=== PATIENT | male | born 1995 | race Caucasian/White ===

== ENCOUNTER 2016-10-27 11:39 | Emergency (ER) | payer OTHER ==
[~2016-10-27] VITALS: Ht 177.8 cm; Wt 70.0 kg
[~2016-10-27 11:39] MED LIST: CIPROFLOXACN500 MG PO; LORAZEPAM0.5 MG PO; MAXZIDE-2537.5 MG/TA PO; PRILOSEC40 MG PO; ROPINIROLE HCL2 MG PO; SINEQUAN10 MG PO; TIZANIDINE HCL4 MG PO; ZOFRAN4 MG/TAB PO
[2016-10-27 12:22] LABS: HEMATOCRIT 50.6 % (39.0-50.0); HEMOGLOBIN 16.8 g/dl (14.0-18.0); IMMATURE GRANULOCYTES 0.5 % (0.0-1.0); MEAN CELL VOLUME 83.8 fL CALC (80.0-100.0); MEAN CORPUSCULAR HGB 27.8 pG CALC (26.0-32.0); MEAN CORPUSCULAR HGB CONC 33.2 g/L CALC (32.0-36.0); NEUT# 11.64 thou/uL (1.82-7.42); RED BLOOD COUNT 6.04 mill/uL (4.70-6.10)
[2016-10-27 12:27] LABS: URINE BILIRUBIN - DIPSTICK NEGATIVE (NEGATIVE); URINE BLOOD DIPSTICK NEGATIVE (NEGATIVE); URINE CLARITY CLEAR; URINE COLOR YELLOW; URINE GLUCOSE - DIPSTICK NEGATIVE (NEGATIVE); URINE KETONE NEGATIVE (NEGATIVE); URINE NITRITE - DIPSTICK NEGATIVE (Negative); URINE PH 7.5 (4.5-8.0); URINE PROTEIN - DIPSTICK TRACE mg/dL (NEG-TRACE); URINE UROBILINOGEN - DIPSTICK 0.2 E.U./dL (0.2)
[2016-10-27 12:33] LABS: ALBUMIN 5.3 g/dL (3.2-5.0); ALKALINE PHOSPHATASE 75 u/l (38-126); AMYLASE 56 u/l (30-110); ANION GAP 20 (6-22 (CALC)); BILIRUBIN, TOTAL 0.7 mg/dL (0.0-1.4); BUN 13 mg/dL (9-20); BUN/CREATININE RATIO 16 (12-20 (CALC)); CALCIUM 10.6 mg/dL (8.4-10.2); CARBON DIOXIDE 26 mmol/l (22-30); CHLORIDE 106 mmol/l (95-108); CREATININE 0.8 mg/dL (0.7-1.3); GFR > 60 ML/MIN (>=60 (CALC)); GFR FOR AFR.AMER. > 60 ML/MIN (>=60 (CALC)); GLUCOSE 97 mg/dL (75-110); LIPASE 72 u/l (23-300); SGOT/AST 19 u/l (17-59); SGPT/ALT 27 u/l (21-72); SODIUM 148 mmol/l (137-146); TOTAL PROTEIN 8.8 g/dL (6.3-8.2)
[2016-10-27 12:39] LABS: BARBITURATES NEGATIVE (NEGATIVE); COCAINE NEGATIVE (NEGATIVE); METHADONE NEGATIVE (NEGATIVE); OXCYCODONE POSITIVE (NEGATIVE); TETRAHYDROCANNABIONOL POSITIVE (NEGATIVE); TRICYLIC ANTIDEPRESSANTS NEGATIVE (NEGATIVE); URINE LEUK ESTERASE NEGATIVE (NEGATIVE)
[2016-10-27 16:41] VITALS: BP 104/58
== END 2016-10-27 16:51 | disposition home or self-care (01) | DRG 392 ==
LOC: ED 11:39
PROVIDERS: Emergency Medicine
DX: R10.13 Epigastric pain (principal); F32.9 Major depressive disorder, single episode, unspecified; G89.29 Other chronic pain; N50.811 Right testicular pain; G40.909 Epilepsy, unspecified, not intractable, without status epilepticus; F17.210 Nicotine dependence, cigarettes, uncomplicated; V89.2XXS Person injured in unspecified motor-vehicle accident, traffic, sequela; Z87.820 Personal history of traumatic brain injury
CPT/HCPCS: Q9967

== ENCOUNTER 2018-06-20 08:07 | Emergency (ER) | payer BC, MEDICARE ==
[~2018-06-20] VITALS: Ht 177.8 cm; Wt 75.0 kg
[2018-06-20 08:56] LABS: HEMATOCRIT 47.1 % (39.0-50.0); IMMATURE GRANULOCYTES 0.6 % (0.0-5.0); MEAN CELL VOLUME 83.1 fL CALC (80.0-100.0); MEAN CORPUSCULAR HGB 28.2 pG CALC (26.0-32.0); NEUT# 13.2 thou/uL (1.82-7.42); RED BLOOD COUNT 5.67 mill/uL (4.70-6.10); RED CELL DISTRI WIDTH 12.6 % (11.5-15.5)
[2018-06-20 09:17] LABS: ALBUMIN 4.6 g/dL (3.2-5.0); ALKALINE PHOSPHATASE 81 u/l (38-126); AMYLASE 59 u/l (30-110); ANION GAP 16 (6-22 (CALC)); BILIRUBIN, TOTAL 0.4 mg/dL (0.0-1.4); BUN 15 mg/dL (9-20); BUN/CREATININE RATIO 19 (12-20 (CALC)); CARBON DIOXIDE 23 mmol/l (22-30); CHLORIDE 110 mmol/l (95-108); CREATININE 0.8 mg/dL (0.7-1.3); GFR > 60 ML/MIN (>=60 (CALC)); GFR FOR AFR.AMER. > 60 ML/MIN (>=60 (CALC)); LIPASE 84 u/l (23-300); POTASSIUM 4.4 mmol/l (3.5-5.1); SGOT/AST 27 u/l (17-59); SODIUM 145 mmol/l (137-146); TOTAL PROTEIN 7.5 g/dL (6.3-8.2)
[2018-06-20 09:27] LABS: URINE BILIRUBIN - DIPSTICK NEGATIVE (NEGATIVE); URINE BLOOD DIPSTICK NEGATIVE (NEGATIVE); URINE COLOR YELLOW; URINE GLUCOSE - DIPSTICK NEGATIVE (NEGATIVE); URINE KETONE NEGATIVE (NEGATIVE); URINE LEUK ESTERASE NEGATIVE (NEGATIVE); URINE NITRITE - DIPSTICK NEGATIVE (Negative); URINE PH 8.5 (4.5-8.0); URINE PROTEIN - DIPSTICK TRACE mg/dL (NEG-TRACE); URINE SPECIFIC GRAVITY 1.015; URINE UROBILINOGEN - DIPSTICK 0.2 E.U./dL (0.2)
[2018-06-20] MEDS ORDERED: PHENERGAN25 M1 PR (11:49)
[2018-06-20 12:01] VITALS: BP 108/65
== END 2018-06-20 12:16 | disposition home or self-care (01) | DRG 392 ==
LOC: ED 08:07
PROVIDERS: Emergency Medicine
DX: R10.13 Epigastric pain (principal); Z87.820 Personal history of traumatic brain injury

== ENCOUNTER 2018-10-18 14:19 | Emergency (ER) | payer BC, MEDICARE ==
[~2018-10-18] VITALS: Ht 177.8 cm; Wt 60.0 kg
[~2018-10-18 14:19] MED LIST changes: +PHENERGAN25 M1 PR
[2018-10-18 14:50] LABS: HEMATOCRIT 47.9 % (39.0-50.0); HEMOGLOBIN 16.1 g/dl (14.0-18.0); IMMATURE GRANULOCYTES 0.4 % (0.0-5.0); MEAN CELL VOLUME 82.3 fL CALC (80.0-100.0); MEAN CORPUSCULAR HGB 27.7 pG CALC (26.0-32.0); MEAN CORPUSCULAR HGB CONC 33.6 g/L CALC (32.0-36.0); NEUT# 12.21 thou/uL (1.82-7.42); RED BLOOD COUNT 5.82 mill/uL (4.70-6.10)
[2018-10-18 15:16] LABS: ALBUMIN 5.1 g/dL (3.2-5.0); ALKALINE PHOSPHATASE 82 u/l (38-126); ANION GAP 18 (6-22 (CALC)); BILIRUBIN, TOTAL 0.7 mg/dL (0.0-1.4); BUN 11 mg/dL (9-20); BUN/CREATININE RATIO 15 (12-20 (CALC)); CARBON DIOXIDE 24 mmol/l (22-30); CHLORIDE 108 mmol/l (95-108); CREATININE 0.7 mg/dL (0.7-1.3); ETHYL ALCOHOL 0 mg/dl (0-30); GFR > 60 ML/MIN (>=60 (CALC)); GFR FOR AFR.AMER. > 60 ML/MIN (>=60 (CALC)); LIPASE 53 u/l (23-300); POTASSIUM 4.6 mmol/l (3.5-5.1); SGOT/AST 32 u/l (17-59); SODIUM 144 mmol/l (137-146); TOTAL PROTEIN 7.7 g/dL (6.3-8.2)
[2018-10-18] MEDS ORDERED: CIPROFLOXACIN500 M1 PO (18:50)
[2018-10-18] MEDS ORDERED: METRONIDAZOL500 MG PO (18:50)
[2018-10-18 18:51] LABS: URINE BILIRUBIN - DIPSTICK NEGATIVE (NEGATIVE); URINE BLOOD DIPSTICK NEGATIVE (NEGATIVE); URINE COLOR YELLOW; URINE GLUCOSE - DIPSTICK NEGATIVE (NEGATIVE); URINE KETONE 15 mg/dL (NEGATIVE); URINE LEUK ESTERASE NEGATIVE (NEGATIVE); URINE NITRITE - DIPSTICK NEGATIVE (Negative); URINE PH >=9.0 (4.5-8.0); URINE PROTEIN - DIPSTICK 30 mg/dL (NEG-TRACE); URINE SPECIFIC GRAVITY <=1.005; URINE UROBILINOGEN - DIPSTICK 0.2 E.U./dL (0.2)
[2018-10-18 18:56] VITALS: BP 105/56
[2018-10-18 19:08] LABS: BARBITURATES NEGATIVE (NEGATIVE); COCAINE NEGATIVE (NEGATIVE); METHADONE NEGATIVE (NEGATIVE); OXCYCODONE POSITIVE (NEGATIVE); TETRAHYDROCANNABIONOL POSITIVE (NEGATIVE); TRICYLIC ANTIDEPRESSANTS NEGATIVE (NEGATIVE)
[2018-10-18 19:10] LABS: URINE RBC 0-2 RBC/hpf (0-5); URINE WBC 0-2 WBC/hpf (0-5)
[2018-10-18 19:11] LABS: URINE AMORPH SEDIMENT MODERATE hpf (NONE-FER)
== END 2018-10-18 19:27 | disposition home or self-care (01) | DRG 392 ==
LOC: ED 14:19
PROVIDERS: Family Medicine
DX: K52.9 Noninfective gastroenteritis and colitis, unspecified (principal); M62.838 Other muscle spasm
CPT/HCPCS: J2060

== ENCOUNTER 2019-07-17 | Emergency (ER) | payer BC, MEDICARE ==
[~2019-07-17] MED LIST changes: +CIPROFLOXACIN500 M1 PO; +METRONIDAZOL500 MG PO
[2019-07-17 15:31] LABS: HEMATOCRIT 51.6 % (39.0-50.0); HEMOGLOBIN 17.4 g/dl (14.0-18.0); IMMATURE GRANULOCYTES 0.5 % (0.0-5.0); MEAN CELL VOLUME 82.2 fL CALC (80.0-100.0); MEAN CORPUSCULAR HGB 27.7 pG CALC (26.0-32.0); MEAN CORPUSCULAR HGB CONC 33.7 g/L CALC (32.0-36.0); NEUT# 13.14 thou/uL (1.82-7.42); RED BLOOD COUNT 6.28 mill/uL (4.70-6.10); RED CELL DISTRI WIDTH 12.6 % (11.5-15.5)
[2019-07-17 16:21] LABS: ALKALINE PHOSPHATASE 99 u/l (38-126); AMYLASE 56 u/l (30-110); ANION GAP 18 (6-22 (CALC)); BILIRUBIN, TOTAL 0.5 mg/dL (0.0-1.4); BUN 11 mg/dL (9-20); BUN/CREATININE RATIO 12 (12-20 (CALC)); CARBON DIOXIDE 21 mmol/l (22-30); CHLORIDE 106 mmol/l (95-108); CREATININE 0.9 mg/dL (0.7-1.3); GFR > 60 ML/MIN (>=60 (CALC)); GFR FOR AFR.AMER. > 60 ML/MIN (>=60 (CALC)); LIPASE 48 u/l (23-300); POTASSIUM 4.2 mmol/l (3.5-5.1); SGOT/AST 24 u/l (17-59); SODIUM 141 mmol/l (137-146); TOTAL PROTEIN 8.1 g/dL (6.3-8.2)
[2019-07-17 16:25] LABS: URINE BILIRUBIN - DIPSTICK NEGATIVE (NEGATIVE); URINE BLOOD DIPSTICK NEGATIVE (NEGATIVE); URINE COLOR YELLOW; URINE GLUCOSE - DIPSTICK NEGATIVE (NEGATIVE); URINE KETONE NEGATIVE (NEGATIVE); URINE LEUK ESTERASE NEGATIVE (NEGATIVE); URINE NITRITE - DIPSTICK NEGATIVE (Negative); URINE PH 7.5 (4.5-8.0); URINE PROTEIN - DIPSTICK NEGATIVE (NEG-TRACE); URINE UROBILINOGEN - DIPSTICK 0.2 E.U./dL (0.2)
[2019-07-17 16:28] LABS: BARBITURATES NEGATIVE (NEGATIVE); COCAINE NEGATIVE (NEGATIVE); METHADONE NEGATIVE (NEGATIVE); OXCYCODONE POSITIVE (NEGATIVE); TETRAHYDROCANNABIONOL POSITIVE (NEGATIVE); TRICYLIC ANTIDEPRESSANTS NEGATIVE (NEGATIVE)
[2019-07-17] MEDS ORDERED: IRON18 M1 PO (17:03)
[2019-07-17] MEDS ORDERED: OXYCODONE5 M1 PO (17:03)
== END 2019-07-17 18:43 | disposition short-term general hospital (02) ==
PROVIDERS: Family Medicine
DX: R11.2 Nausea with vomiting, unspecified (principal); Z87.820 Personal history of traumatic brain injury
CPT/HCPCS: J2060; Q9967

== ENCOUNTER 2019-09-24 | Emergency (ER) | payer BC, MEDICARE ==
[~2019-09-24] MED LIST changes: +IRON18 M1 PO; +OXYCODONE5 M1 PO
[2019-09-24 16:42] LABS: HEMATOCRIT 51.9 % (39.0-50.0); HEMOGLOBIN 17.6 g/dl (14.0-18.0); IMMATURE GRANULOCYTES 0.8 % (0.0-5.0); MEAN CORPUSCULAR HGB 27.1 pG CALC (26.0-32.0); MEAN CORPUSCULAR HGB CONC 33.9 g/dL CAL (32.0-36.0); NEUT# 18.77 thou/uL (1.82-7.42); RED BLOOD COUNT 6.49 mill/uL (4.70-6.10); RED CELL DISTRI WIDTH 12.7 % (11.5-15.5)
[2019-09-24] MEDS ORDERED: BELBUCA600 MCG PO ×2 (16:54→18:01)
[2019-09-24] MEDS ORDERED: ATIVAN1 MG PO (16:54)
[2019-09-24 16:55] LABS: URINE BILIRUBIN - DIPSTICK NEGATIVE (NEGATIVE); URINE COLOR YELLOW; URINE GLUCOSE - DIPSTICK NEGATIVE (NEGATIVE); URINE KETONE 40 mg/dL (NEGATIVE)
[2019-09-24 16:56] LABS: URINE BLOOD DIPSTICK NEGATIVE (NEGATIVE); URINE LEUK ESTERASE NEGATIVE (NEGATIVE); URINE NITRITE - DIPSTICK NEGATIVE (Negative); URINE PH >=9.0 (4.5-8.0); URINE PROTEIN - DIPSTICK 30 mg/dL (NEG-TRACE); URINE SPECIFIC GRAVITY 1.015; URINE UROBILINOGEN - DIPSTICK 0.2 E.U./dL (0.2)
[2019-09-24 16:58] LABS: ALBUMIN 5.2 g/dL (3.2-5.0); ALKALINE PHOSPHATASE 114 u/l (38-126); ANION GAP 17 (6-22 (CALC)); BILIRUBIN, TOTAL 0.9 mg/dL (0.0-1.4); BUN 14 mg/dL (9-20); BUN/CREATININE RATIO 19 (12-20 (CALC)); CARBON DIOXIDE 19 mmol/l (22-30); CHLORIDE 111 mmol/l (95-108); CREATININE 0.7 mg/dL (0.7-1.3); GFR > 60 ML/MIN (>=60 (CALC)); GFR FOR AFR.AMER. > 60 ML/MIN (>=60 (CALC)); LIPASE 42 u/l (23-300); POTASSIUM 4.4 mmol/l (3.5-5.1); SGOT/AST 30 u/l (17-59); SODIUM 142 mmol/l (137-146); TOTAL PROTEIN 8.7 g/dL (6.3-8.2)
[2019-09-24 17:00] LABS: URINE RBC 0-2 RBC/hpf (0-5); URINE WBC 0-2 WBC/hpf (0-5)
[2019-09-24] MEDS ORDERED: BACLOFEN20 MG PO (18:01)
[2019-09-24] MEDS ORDERED: DULOXETINE HCL30 MG PO (18:02)
[2019-09-24] MEDS ORDERED: TRILEPTAL300 MG PO (18:04)
[2019-09-24] MEDS ORDERED: REGLAN10 MG PO (19:25)
[2019-09-24] MEDS ORDERED: ZOFRAN4 MG/TAB PO ×2 (19:25)
== END 2019-09-24 19:55 | disposition home or self-care (01) | DRG 392 ==
DX: R11.2 Nausea with vomiting, unspecified (principal); R10.84 Generalized abdominal pain; F17.210 Nicotine dependence, cigarettes, uncomplicated; Z87.820 Personal history of traumatic brain injury
CPT/HCPCS: J2060; Q9967

== ENCOUNTER 2019-10-15 | Emergency (ER) | payer BC, MEDICARE ==
[~2019-10-15] MED LIST changes: +ATIVAN1 MG PO; +BACLOFEN20 MG PO; +BELBUCA600 MCG PO; +DULOXETINE HCL30 MG PO; +REGLAN10 MG PO; +TRILEPTAL300 MG PO
[2019-10-15 13:07] LABS: HEMATOCRIT 51.1 % (39.0-50.0); HEMOGLOBIN 17.2 g/dl (14.0-18.0); IMMATURE GRANULOCYTES 0.4 % (0.0-5.0); MEAN CELL VOLUME 81.5 fL CALC (80.0-100.0); MEAN CORPUSCULAR HGB 27.4 pG CALC (26.0-32.0); MEAN CORPUSCULAR HGB CONC 33.7 g/dL CAL (32.0-36.0); NEUT# 12.94 thou/uL (1.82-7.42); RED BLOOD COUNT 6.27 mill/uL (4.70-6.10)
[2019-10-15 13:27] LABS: ALBUMIN 4.9 g/dL (3.2-5.0); ALKALINE PHOSPHATASE 96 u/l (38-126); AMYLASE 88 u/l (30-110); BUN 9 mg/dL (9-20); BUN/CREATININE RATIO 11 (12-20 (CALC)); CHLORIDE 107 mmol/l (95-108); CREATININE 0.8 mg/dL (0.7-1.3); GFR > 60 ML/MIN (>=60 (CALC)); GFR FOR AFR.AMER. > 60 ML/MIN (>=60 (CALC)); LIPASE 57 u/l (23-300); POTASSIUM 4.4 mmol/l (3.5-5.1); SGOT/AST 27 u/l (17-59); SODIUM 142 mmol/l (137-146); TOTAL PROTEIN 8.1 g/dL (6.3-8.2)
[2019-10-15 13:36] LABS: ANION GAP 13 (6-22 (CALC)); BILIRUBIN, TOTAL 0.5 mg/dL (0.0-1.4); CARBON DIOXIDE 26 mmol/l (22-30)
[2019-10-15] MEDS ORDERED: ONDANSETRON4 MG PO (15:29)
== END 2019-10-15 16:27 | disposition home or self-care (01) | DRG 392 ==
PROVIDERS: Emergency Medicine
DX: R11.2 Nausea with vomiting, unspecified (principal); R10.9 Unspecified abdominal pain; R55 Syncope and collapse; Z87.820 Personal history of traumatic brain injury
CPT/HCPCS: J2060; Q9967

== ENCOUNTER 2019-10-17 | Emergency (ER) | payer BC, MEDICARE ==
[~2019-10-17] MED LIST changes: +ONDANSETRON4 MG PO
[2019-10-17 11:43] LABS: HEMATOCRIT 51.8 % (39.0-50.0); HEMOGLOBIN 17.6 g/dl (14.0-18.0); IMMATURE GRANULOCYTES 0.4 % (0.0-5.0); MEAN CELL VOLUME 80.8 fL CALC (80.0-100.0); MEAN CORPUSCULAR HGB 27.5 pG CALC (26.0-32.0); NEUT# 9.92 thou/uL (1.82-7.42); RED BLOOD COUNT 6.41 mill/uL (4.70-6.10); RED CELL DISTRI WIDTH 13.2 % (11.5-15.5)
[2019-10-17 12:13] LABS: ALKALINE PHOSPHATASE 93 u/l (38-126); AMYLASE 131 u/l (30-110); BUN 12 mg/dL (9-20); BUN/CREATININE RATIO 14 (12-20 (CALC)); CARBON DIOXIDE 29 mmol/l (22-30); CHLORIDE 100 mmol/l (95-108); CREATININE 0.9 mg/dL (0.7-1.3); GFR > 60 ML/MIN (>=60 (CALC)); GFR FOR AFR.AMER. > 60 ML/MIN (>=60 (CALC)); LIPASE 37 u/l (23-300); SODIUM 139 mmol/l (137-146); TOTAL PROTEIN 8.5 g/dL (6.3-8.2)
[2019-10-17 12:14] LABS: ANION GAP 14 (6-22 (CALC)); BILIRUBIN, TOTAL 0.9 mg/dL (0.0-1.4); POTASSIUM 3.5 mmol/l (3.5-5.1); SGOT/AST 58 u/l (17-59)
[2019-10-17] MEDS ORDERED: ONDANSETRON4 MG PO (13:48)
[2019-10-17] MEDS ORDERED: PROTONIX40 M2 PO ×2 (13:48)
[2019-10-17] MEDS ORDERED: REGLAN10 MG PO (14:44)
== END 2019-10-17 14:11 | disposition home or self-care (01) | DRG 392 ==
DX: R10.13 Epigastric pain (principal); R11.2 Nausea with vomiting, unspecified; Z91.19 Patient's noncompliance with other medical treatment and regimen; Z87.820 Personal history of traumatic brain injury
CPT/HCPCS: J2060; S0164

== ENCOUNTER 2019-11-09 14:44 | Emergency (ER) | payer BC, MEDICARE ==
[~2019-11-09 14:44] MED LIST changes: +PROTONIX40 M2 PO
[2019-11-09 15:58] LABS: HEMATOCRIT 49.7 % (39.0-50.0); HEMOGLOBIN 16.6 g/dl (14.0-18.0); IMMATURE GRANULOCYTES 0.5 % (0.0-5.0); MEAN CELL VOLUME 81.9 fL CALC (80.0-100.0); MEAN CORPUSCULAR HGB 27.3 pG CALC (26.0-32.0); MEAN CORPUSCULAR HGB CONC 33.4 g/dL CAL (32.0-36.0); NEUT# 13.89 thou/uL (1.82-7.42); RED BLOOD COUNT 6.07 mill/uL (4.70-6.10); RED CELL DISTRI WIDTH 13.2 % (11.5-15.5)
[2019-11-09 16:10] LABS: ALBUMIN 4.9 g/dL (3.2-5.0); ALKALINE PHOSPHATASE 91 u/l (38-126); AMYLASE 104 u/l (30-110); BILIRUBIN, TOTAL 0.7 mg/dL (0.0-1.4); BUN 9 mg/dL (9-20); BUN/CREATININE RATIO 12 (12-20 (CALC)); CARBON DIOXIDE 24 mmol/l (22-30); CHLORIDE 108 mmol/l (95-108); CREATININE 0.7 mg/dL (0.7-1.3); GFR > 60 ML/MIN (>=60 (CALC)); GFR FOR AFR.AMER. > 60 ML/MIN (>=60 (CALC)); LIPASE 42 u/l (23-300); SGOT/AST 28 u/l (17-59); SODIUM 141 mmol/l (137-146); TOTAL PROTEIN 7.7 g/dL (6.3-8.2)
[2019-11-09 16:18] LABS: ANION GAP 13 (6-22 (CALC)); POTASSIUM 4.4 mmol/l (3.5-5.1)
[2019-11-09] MEDS ORDERED: PROTONIX40 M2 PO (18:42)
[2019-11-09] MEDS ORDERED: ONDANSETRON4 MG PO (18:42)
[2019-11-09] MEDS ORDERED: REGLAN10 MG PO ×2 (18:42)
[2019-11-09 20:20] VITALS: BP 112/58
== END 2019-11-09 20:25 | disposition home or self-care (01) | DRG 392 ==
LOC: ED 14:44
DX: R10.13 Epigastric pain (principal); E86.0 Dehydration; R11.15 Cyclical vomiting syndrome unrelated to migraine; F17.210 Nicotine dependence, cigarettes, uncomplicated; Z87.820 Personal history of traumatic brain injury
CPT/HCPCS: J2060; Q9967; S0164

== ENCOUNTER 2020-01-05 15:55 | Emergency (ER) | payer BC, MEDICARE ==
[~2020-01-05] VITALS: Ht 177.8 cm; Wt 65.0 kg
[2020-01-05 16:26] LABS: HEMATOCRIT 52.5 % (39.0-50.0); HEMOGLOBIN 17.6 g/dl (14.0-18.0); IMMATURE GRANULOCYTES 0.7 % (0.0-5.0); MEAN CELL VOLUME 81.5 fL CALC (80.0-100.0); MEAN CORPUSCULAR HGB 27.3 pG CALC (26.0-32.0); MEAN CORPUSCULAR HGB CONC 33.5 g/dL CAL (32.0-36.0); NEUT# 15.05 thou/uL (1.82-7.42); RED BLOOD COUNT 6.44 mill/uL (4.70-6.10); RED CELL DISTRI WIDTH 12.7 % (11.5-15.5)
[2020-01-05 16:44] LABS: ALBUMIN 5.2 g/dL (3.2-5.0); ALKALINE PHOSPHATASE 109 u/l (38-126); ANION GAP 13 (6-22 (CALC)); BILIRUBIN, TOTAL 0.6 mg/dL (0.0-1.4); BUN 11 mg/dL (9-20); BUN/CREATININE RATIO 14 (12-20 (CALC)); CARBON DIOXIDE 21 mmol/l (22-30); CHLORIDE 109 mmol/l (95-108); CREATININE 0.7 mg/dL (0.7-1.3); GFR > 60 ML/MIN (>=60 (CALC)); GFR FOR AFR.AMER. > 60 ML/MIN (>=60 (CALC)); LIPASE 46 u/l (23-300); POTASSIUM 3.8 mmol/l (3.5-5.1); SGOT/AST 24 u/l (17-59); SODIUM 139 mmol/l (137-146); TOTAL PROTEIN 7.9 g/dL (6.3-8.2)
[2020-01-05 17:30] VITALS: BP 114/69
== END 2020-01-05 18:10 | disposition left against medical advice (07) | DRG 392 ==
LOC: ED 15:55
PROVIDERS: Student in an Organized Health Care Education/Training Program
DX: R10.33 Periumbilical pain (principal); R11.15 Cyclical vomiting syndrome unrelated to migraine; G89.29 Other chronic pain; G40.909 Epilepsy, unspecified, not intractable, without status epilepticus; F17.210 Nicotine dependence, cigarettes, uncomplicated; F12.90 Cannabis use, unspecified, uncomplicated; Z87.820 Personal history of traumatic brain injury; Z91.19 Patient's noncompliance with other medical treatment and regimen